=== PATIENT | male | born 1975 | race African-American/Black ===

== ENCOUNTER 2016-07-06 13:44 | Inpatient (IN) | payer OTHER ==
--- NOTE | ~2016-07-06 | PN ---
Unit #: [id number] #: [id number] Patient: CECE ESPARZA [id number] [facility] [address] [place] [address] [id number] MR#: [id number] NAME: CECE ESPARZA. ROOM: P257 Age: 41 Sex: M Admission Date: 07/06/2016 : 1975 Attending Physician: Nikunj Grimm M.D. Admitting Physician: Nikunj Grimm M.D. Primary Care Physician: Brent Evans PROGRESS NOTES DATE 07/09/2016 DISCUSSION Cece Esparza is a 41-year-old male, seen on 07/09/2016. The patient interviewed, chart reviewed, and obtained information from the nursing staff. The patient was compliant and cooperative. Mood sad and dysphoric, flat affect, and guarded. The patient reported that he is making progress and ready to be discharged soon. REVIEW OF SYSTEMS Complete review of systems unremarkable. The patient was pacing in the hallway. MENTAL STATUS EXAMINATION General appearance: Patient casually dressed. Attention span and concentration, fair. Oriented to time, place, and person. Mood and affect, sad and dysphoric. Speech, monotone. Thought process, concrete. Association, the patient denied any thoughts of harming self or others but guarded. Recent and remote memory, poor. Insight and judgment, poor. DIAGNOSIS 1. Schizoaffective disorder, bipolar type. 2. Marijuana abuse. ASSESSMENT/PLAN Advised to continue with the current medication and therapeutic protocol and will monitor response to medication, and make further adjustment of medication. Dictated by... Brent Tamez/trudy TD: 07/10/2016 09:04 JOB #: [id number] Unit #: [id number] #: [id number] Patient: CECE ESPARZA DEQUAN PROGRESS NOTES X Nikunj Grimm MD PROGRESS NOTE
--- NOTE | ~2016-07-06 | PN ---
Unit #: [id number] #: [id number] Patient: CECE ESPARZA [id number] [facility] [address] [place] [address] [id number] I MR#: [id number] NAME: CECE ESPARZA. ROOM: P257 Age: 41 Sex: M Admission Date: 07/06/2016 : 1975 Attending Physician: Nikunj Grimm M.D. Admitting Physician: Nikunj Grimm M.D. Primary Care Physician: Brent Evans PROGRESS NOTES DATE 07/07/2016 DISCUSSION Cece Esparza is a 41-year-old male seen on 07/07/2016. The patient interviewed, chart reviewed. Obtained information from nursing staff. The patient was compliant and cooperative. Mood sad, dysphoric, flat affect, guarded, withdrawn, isolative. Seems to be attending to internal stimuli, still having suicidal ideation, psychosis. Complete review of systems unremarkable. MENTAL STATUS EXAMINATION General appearance, the patient dressed casually. Withdrawn, isolative. Attention span and concentration fair. Oriented to place and person. Mood and affect sad, depressed. Speech monotone. Thought process concrete. The patient denied any thoughts of harming others but having suicidal ideation, hallucination, auditory visual. Recent and remote memory poor. Insight and judgement poor. DIAGNOSES 1. Major depressive disorder recurrent severe with psychotic features. 2. Rule out schizophrenia and chronic paranoid type. ASSESSMENT/PLAN Advise to continue with current medication and therapeutic protocol. We will monitor response to medication and make further adjustment of medication. Dictated by... Brent Tamez/whitney TD: 07/10/2016 04:30 JOB #: [id number] Unit #: [id number] #: [id number] Patient: CECE ESPARZA [facility] PROGRESS NOTES X Nikunj Grimm MD PROGRESS NOTE
--- NOTE | ~2016-07-06 | DS ---
Unit #: [id number] #: [id number] Patient: CECE WALSH [id number] [place] [address] [id number] MR#: [id number] NAME: CECE WALSH. ROOM: P257 Age: 41 Sex: M Admission Date: 07/06/2016 : 1975 Discharge Date: 07/10/2016 Attending Physician: Nikunj Grimm M.D. Primary Care Physician: Dexter Vanegas M.D. DISCHARGE SUMMARY REASON FOR ADMISSION Hallucination. DIAGNOSTIC STUDIES LABORATORY RESULTS: None. HOSPITAL COURSE The patient was admitted to outpatient program due to hallucination and depression. The patient responded well with the above modalities of treatment. The patient showed improvement in his mood and decrease in hallucination. Subsequently, the patient was discharged with a plan to follow up in outpatient program. DISCHARGE MEDICATIONS Zoloft 100 mg daily for depression, Glucophage 1000 mg b.i.d. for high diabetes, Vistaril 50 mg t.i.d. for anxiety, Seroquel 100 mg b.i.d. for psychosis, Invega 6 mg at bedtime for psychosis, Cogentin 1 mg t.i.d. for EPS symptom, trazodone 100 mg at bedtime for sleep. The patient needed 2 antipsychotic as the patient did not respond with one. The patient was tried on Risperdal, Invega, Seroquel, Haldol. Plan to taper off Seroquel once the patient is stable for at least 6 months. The patient is not a candidate for clozapine as he does not want any repeated blood tests. DISCHARGE DIAGNOSES Psychiatric: 1. Schizophrenia, chronic paranoid type. 2. Cannabis abuse, moderate to severe. Secondary diagnosis: Deferred. Medical diagnoses: Obesity and type 2 diabetes. Stressors: Psychosocial stressors. DISCHARGE INSTRUCTIONS The patient to follow up in outpatient clinic as per social security benefits interviewer. CONDITION ON DISCHARGE The patient was pleasant and cooperative. Denied any psychotic symptom or any suicidal ideation. PROGNOSIS Guarded. Unit #: [id number] #: [id number] Patient: CECE WALSH DIET AND ACTIVITY As tolerated. Dictated by... Nikunj Grimm M.D. SZC/modl TD: 08/15/2016 23:39 JOB #: [id number] DISCHARGE SUMMARY Page 1 of 1 X Nikunj Grimm MD DISCHARGE SUMMARY
--- NOTE | ~2016-07-06 | HP ---
Unit #: [id number] #: [id number] Patient: ZAFAR WALSH [id number] [place] [address] [id number] I MR#: [id number] NAME: ZAFAR WALSH. ROOM: P257 Age: 41 Sex: M Admission Date: 07/06/2016 : 1975 Attending Physician: Nikunj Grimm M.D. Admitting Physician: Nikunj Grimm M.D. Primary Care Physician: Dexter Vanegas M.D. HISTORY AND PHYSICAL Zafar is a 41 year old admitted to [facility] with psychotic behavior. He was recently discharged from this facility after treatment for the same. The patient was seen and H and P dated 06/08/16 was reviewed. This is current. No changes. Please see H and P dated 06/08/16. Dictated by... Awilda Jenkins P.A.-C. for Brent Jaeger/terrence TD: 07/06/2016 18:29 JOB #: [id number] HISTORY AND PHYSICAL X Awilda Jenkins HISTORY AND PHYSICAL
--- NOTE | ~2016-07-06 | DS ---
Unit #: [id number] #: [id number] Patient: CECE WALSH [id number] [place] [address] [id number] I MR#: [id number] NAME: CECE WALSH. ROOM: P257 Age: 41 Sex: M Admission Date: 07/06/2016 : 1975 Discharge Date: 07/10/2016 Attending Physician: Nikunj Grimm M.D. Primary Care Physician: Dexter Vanegas M.D. DISCHARGE SUMMARY REASON FOR ADMISSION Psychosis. DIAGNOSTIC STUDIES LABORATORY RESULTS: Remarkable for urine drug screen positive for marijuana. HOSPITAL COURSE The patient was admitted to inpatient unit on 07/06/2016 and discharged on 07/10/2016. The patient was treated on the inpatient unit with group therapy, medication management, and structured milieu, and responded well with the above modalities of treatment. Subsequently, the patient showed improvement. Subsequently, the patient was discharged to follow up in outpatient program. DISCHARGE MEDICATIONS Invega 3 mg at bedtime for psychosis. The patient is to continue with the other medications; Desyrel 100 mg at bedtime for sleep, NovoLog for diabetes, Seroquel 100 mg b.i.d. for psychosis, Cogentin 1 mg b.i.d. for EPS symptom, Vistaril 50 mg t.i.d. for anxiety, Glucophage 1000 mg b.i.d. for blood sugar, Zoloft 100 mg daily for depression, and Colace 100 mg daily for constipation. DISCHARGE DIAGNOSES Psychiatric: 1. Schizophrenia, chronic paranoid type. 2. Anxiety disorder, not otherwise specified. 3. Cannabis abuse disorder, severe. Secondary diagnosis: Deferred. Medical diagnoses: Obesity, type 2 diabetes mellitus. Stressors: Psychosocial stressors. DISCHARGE INSTRUCTIONS The patient is to follow up in outpatient clinic as per social services analyst. CONDITION ON DISCHARGE The patient was pleasant and cooperative. Denied any psychotic symptom or any suicidal ideation. PROGNOSIS Guarded. Unit #: [id number] #: [id number] Patient: CECE WALSH DIET AND ACTIVITY As tolerated. Dictated by... Nikunj Grimm M.D. LAURAC/ian TD: 07/10/2016 20:38 JOB #: [id number] DISCHARGE SUMMARY X Nikunj Grimm MD DISCHARGE SUMMARY
--- NOTE | ~2016-07-06 | PN ---
Unit #: [id number] #: [id number] Patient: CECE ESPARZA [id number] [facility] [address] [place] [address] [id number] I MR#: [id number] NAME: CECE ESPARZA. ROOM: P257 Age: 41 Sex: M Admission Date: 07/06/2016 : 1975 Attending Physician: Nikunj Grimm M.D. Admitting Physician: Nikunj Grimm M.D. Primary Care Physician: Brent Evans PROGRESS NOTES DATE OF SERVICE: 07/08/2016 DISCUSSION Mr. Cece Esparza is a 41-year-old male. The patient continues to be seclusive, isolative, guarded, paranoid. Reports feeling better. The patient is still isolative. Vital signs; temperature 98.1, pulse 73, respirations 20, and blood pressure 115/74. The patient denied any side effects from medication, but still having psychotic symptom. Blood sugar ranged from 236 to 200. Complete review of systems unremarkable. MENTAL STATUS EXAMINATION General appearance, the patient dressed casually. Attention span and concentration, fair. Oriented in place and person. Mood and affect were labile, sad, and dysphoric. Speech, monotone. Thought process, concrete. The patient denied any thoughts of harming self or others, but guarded, paranoid. Passive SI. Recent and remote memory, poor. Insight and judgment, poor. DIAGNOSES 1. Major depressive disorder, recurrent, severe. 2. Rule out schizophrenia. 3. Marijuana abuse. ASSESSMENT AND PLAN Advised to continue with current medication and therapeutic protocol. If needed, consider further adjustment of medication. The patient's urine drug screen was positive for marijuana. Dictated by... Brent Tamez/ian TD: 07/09/2016 21:33 JOB #: [id number] Unit #: [id number] #: [id number] Patient: CECE ESPARZA [facility] PROGRESS NOTES X Nikunj Grimm MD PROGRESS NOTE
--- NOTE | ~2016-07-06 | PN ---
Unit #: [id number] #: [id number] Patient: CECE WALSH [id number] [facility] [address] [place] [address] [id number] MR#: [id number] NAME: CECE WALSH. ROOM: P257 Age: 41 Sex: M Admission Date: 07/06/2016 : 1975 Attending Physician: Nikunj Grimm M.D. Admitting Physician: Nikunj Grimm M.D. Primary Care Physician: Brent Evans PROGRESS NOTES DATE OF SERVICE: 07/04/2016 DISCUSSION Jamilah Wlash is a 41-year-old male, seen on 07/04/2016. The patient continues to report having auditory and visual hallucination, delusion, paranoia, and mood lability. The patient was feeling sad, depressed, anxious. The patient reports that he will consider going inpatient if things are not better. The patient is compliant with medication, has a history of marijuana abuse, but denied any use. Complete review of systems unremarkable. MENTAL STATUS EXAMINATION General appearance, the patient dressed casually. Attention span and concentration, poor. Oriented in place and person. Mood and affect were labile. Speech, monotone. Thought process; concrete, guarded, paranoid. Recent and remote memory, poor. Insight and judgment, poor. DIAGNOSES 1. Schizophrenia, chronic paranoid type, F20.0. 2. Cannabis abuse, moderate, F12.20. ASSESSMENT/PLAN Supportive psychotherapy and psychoeducation provided to the patient. Advised the patient to continue with current medication. If needed, consider inpatient admission. The patient was given crisis line #[id number]. Dictated by... Nikunj Grimm M.D. SZC/ian TD: 07/09/2016 19:47 JOB #: [id number] Unit #: [id number] #: [id number] Patient: CECE WALSHFABRICE PROGRESS NOTES X Nikunj Grimm MD PROGRESS NOTE
--- NOTE | ~2016-07-06 | PA ---
Unit #: [id number] #: [id number] Patient: ZAFAR ESPARZA [id number] [facility] [address] [place] [address] [id number] MR#: [id number] NAME: ZAFAR ESPARZA. ROOM: P257 Age: 41 Sex: M Admission Date: 07/06/2016 : 1975 Date of Assessment: Attending Physician: Nikunj Grimm M.D. Admitting Physician: Nikunj Grimm M.D. Primary Care Physician: Dexter Vanegas M.D. PSYCHIATRIC ASSESSMENT INFORMANT The patient's reliability, fair; chart reliability, good. CHIEF COMPLAINT Hallucination and suicidal ideation. HISTORY OF PRESENT ILLNESS Mr. Zafar Esparza is a 41-year-old male, seen on [facility], stepped up from [facility] level of care due to worsening of depression and psychosis, having auditory hallucination, visual hallucination, command hallucination, unable to contract for safety. The patient reported that he has been struggling with this for a long period of time. The patient reports that his medication changed from Geodon to Seroquel. The patient reported that he is single, has a history of depression and psychosis. The patient reported seeing Beto Villavicencio. The patient reported cannabis abuse, one joint 1 to 2 times a month. The patient reported that he is unable to contract for safety at this time having hallucination, needing inpatient admission at this time for psychiatric stabilization. PAST PSYCHIATRIC HISTORY Remarkable for history of multiple treatments in 01/2016, 03/2016, 04/2016, 05/2016. FAMILY HISTORY AND SOCIAL HISTORY The patient has poor support from family. The patient lives in [place], but moved from [place]. Family psychiatric illness unknown. The patient reported that he was in foster care as a teenager. PAST MEDICAL HISTORY Remarkable for obesity, type 2 diabetes. Musculoskeletal; muscle strength and tone, no atrophy or abnormal movement. Gait normal. MEDICATION HISTORY The patient is on Desyrel, Celexa, Glucophage, Seroquel. ALLERGIES Risperdal and Benadryl. SUBSTANCE ABUSE HISTORY The patient reported use of marijuana. REVIEW OF SYSTEMS Unit #: [id number] #: [id number] Patient: NICO,ZAFAR D HEENT: Eyes, clear. Ears, nose, mouth, and throat; clear. CARDIOVASCULAR: Unremarkable. RESPIRATORY: Unremarkable. GI: Unremarkable. : Unremarkable. SKIN: Unremarkable. LYMPH NODE: Unremarkable. NEUROLOGIC: Unremarkable. ENDOCRINE: Unremarkable. HEMATOLOGIC: Unremarkable. ALLERGIC/IMMUNOLOGIC: Unremarkable. MUSCULOSKELETAL: Muscle strength and tone, no atrophy or abnormal movement. Gait normal. MENTAL STATUS EXAMINATION CONSTITUTIONAL: Measurement of vital signs; temperature 98.4, pulse 80, respirations 16, blood pressure 110/75, height 5 feet 5 inches, weight 238 pounds. GENERAL APPEARANCE: The patient is dressed casually. The patient did not show any facial deformity. MUSCULOSKELETAL: Please see above. PSYCHIATRIC EXAMINATION Description of speech; slow in rate and volume. Description of thought process, circumstantial. Description of association, guarded and paranoid. The patient reported delusions, hallucinations, command hallucination, auditory and visual, suicidal ideation. Denied any homicidal ideation. Description of patient's judgment, concerning. Everyday activity, poor. Social situation, poor and concerning. Psychiatric condition, poor. Complete mental status examination; oriented in time, place, and person. Recent and remote memory, poor. Language, able to name object, repeat phrases. Fund of knowledge, aware of current event, passive and vocabulary intact. Mood and affect, sad and dysphoric. Insight and judgment, fair to poor. ASSETS AND LIABILITIES The patient is articulate, able to take care of his ADLs. Liability; substance abuse, depression, and psychosis. ADMITTING DIAGNOSES Psychiatric: 1. Major depressive disorder, recurrent, severe, F33.2. 2. Anxiety disorder, not otherwise specified. 3. Cannabis abuse, severe. 4. Rule out schizophrenia, chronic, paranoid type. Secondary diagnosis: Deferred. Medical diagnosis: Obesity, type 2 diabetes mellitus. Stressors: Psychosocial stressors. PSYCHIATRIC PLAN AND TREATMENT GOAL AND DISCHARGE PLAN 1. Advised to admit the patient on the inpatient unit. Provide safe, supportive, and structured environment. 2. Ordered labs; CBC, CMP, UA, UDS, Accu-Cheks a.c. and h.s. Advised to resume the patient's home medication. Unit #: [id number] #: [id number] Patient: SUSAN ESPARZAN Elza 3. Plan is to consider long-acting medication such as Invega. The patient is to attend all the programing, group therapy, individual therapy, family session if any family available. 4. Treatment goal is to attain euthymic mood, gain insight into his problem, and learn coping skills. 5. Discharge plan; plan is to stabilize the patient and consider followup in outpatient program. ESTIMATED LENGTH OF STAY 5 days. Dictated by... Brent Tamez/ian TD: 07/09/2016 08:05 JOB #: [id number] PSYCHIATRIC ASSESSMENT X Nikunj Grimm MD X PSYCHIATRIC ASSESSMENT
--- NOTE | ~2016-07-06 | PN ---
Unit #: [id number] #: [id number] Patient: CECE ESPARZA [id number] [facility] [address] [place] [address] [id number] MR#: [id number] NAME: CECE ESPARZA. ROOM: P257 Age: 41 Sex: M Admission Date: 07/06/2016 : 1975 Attending Physician: Nikunj Grimm M.D. Admitting Physician: Nikunj Grimm M.D. Primary Care Physician: Brent Evans PROGRESS NOTES DATE OF SERVICE: 07/06/2016 DISCUSSION Cece Esparza is a 41-year-old male, seen on 07/06/2016. The patient continues to be guarded, paranoid, mood lability. The patient reported the hallucinations are getting bad. The patient was unable to contract for safety, guarded, paranoid. REVIEW OF SYSTEMS Complete review of systems unremarkable. MENTAL STATUS EXAMINATION General appearance, the patient dressed casually. Attention span and concentration, fair to poor. Oriented in place and person. Mood and affect, sad, and depressed. Speech, slow. Thought process, circumstantial. The patient reported having suicidal ideation, guarded, paranoid, delusional, auditory and visual hallucination. Recent and remote memory, poor. Insight and judgment, poor. DIAGNOSES F20.0, F33.2. ASSESSMENT/PLAN Advised to recommend inpatient admission at this time for psychiatric stabilization with a plan to consider medication such as Invega to convert into a long-acting injectable. The patient was agreeable for the inpatient admission at this time. Dictated by... Brent Tamez/ian TD: 07/10/2016 02:37 JOB #: [id number] Unit #: [id number] #: [id number] Patient: CECE ESPARZA DEQUAN THOMPSON NOTES X Nikunj Grimm MD PROGRESS NOTE
[2016-07-07 12:42] LABS: URINE APPEARANCE CLEAR; URINE BILIRUBIN NEG (NEG); URINE BLOOD NEG (NEG); URINE COLOR YELLOW; URINE GLUCOSE >1000 MG/DL (NEG); URINE KETONE NEG (NEG); URINE LEUKOCYTE ESTERASE NEG (NEG); URINE NITRATE NEG (NEG); URINE PH 6.5 (5-8); URINE PROTEIN NEG (NEG); URINE SPECIFIC GRAVITY 1.034 (1.003-1.035); URINE UROBILINOGEN 0.2 MG/DL (NEG)
[2016-07-07 13:31] LABS: AMPHETAMINE NEG (NEG); BARBITURATES NEG (NEG); BENZODIAZEPINES NEG (NEG); COCAINE NEG (NEG); MARIJUANA POS (NEG); OPIATES NEG (NEG); TRICYCLIC ANTIDEPRESSANTS NEG (NEG); U METHADONE NEG (NEG)
== END 2016-07-10 11:45 | disposition home or self-care (01) | DRG 885 ==
LOC: P2L 13:44 → POF 07-07 15:17 → P2L 07-07 15:29
PROVIDERS: Psychiatry & Neurology Psychiatry
DX: F33.2 Major depressive disorder, recurrent severe without psychotic features (principal); E11.9 Type 2 diabetes mellitus without complications; F41.9 Anxiety disorder, unspecified; F12.10 Cannabis abuse, uncomplicated; F20.0 Paranoid schizophrenia; E66.9 Obesity, unspecified
CPT/HCPCS: 80307; 81003; 82947